=== PATIENT | female | born 1990 | race Caucasian/White ===

== ENCOUNTER 2024-04-01 05:03 | Observation (INO) | payer OTHER ==
[~2024-04-01] VITALS: Ht 157.5 cm; Wt 113.4 kg
[2024-04-01 05:35] LABS: BASOPHILS ABSOLUTE AUTO 0.03 K/mm3 (0.00-0.23); BASOPHILS PERCENT AUTO 0 % (0-2); EOSINOPHILS ABSOLUTE AUTO 0.04 K/mm3 (0.00-0.68); EOSINOPHILS PERCENT AUTO 0 % (0-6); Hematocrit 41.4 % (33.0-51.0); Hemoglobin 14.8 g/dL (11.5-16.0); IMMATURE GRAN ABSOLUTE AUTO 0.06 K/mm3 (0.00-0.10); IMMATURE GRAN PERCENT AUTO 0 % (0-1); LYMPHOCYTES ABSOLUTE AUTO 1.29 K/mm3 (0.84-5.20); LYMPHOCYTES PERCENT AUTO 8 % (21-46); MONOCYTES ABSOLUTE AUTO 0.63 K/mm3 (0.16-1.47); MONOCYTES PERCENT AUTO 4 % (4-13); Mean Corpuscular HGB 30.9 pg (26.0-34.0); Mean Corpuscular HGB Conc 35.7 g/dL (31.5-36.5); Mean Corpuscular Volume 86 fL (80-100); Mean Platelet Volume 9.6 fL (9.1-12.4); NEUTROPHILS ABSOLUTE AUTO 13.44 K/mm3 (1.96-9.15); NEUTROPHILS PERCENT AUTO 87 % (41-73); Platelet Count 426 K/mm3 (150-400); RDW Coefficient Variation 12.7 % (11.7-14.2); RDW Standard Deviation 39.8 fL (35.1-46.3); Red Blood Cell Count 4.79 M/mm3 (3.80-5.20); White Blood Cell Count 15.49 K/mm3 (4.00-11.30)
[2024-04-01 06:05] LABS: Ethanol (Alcohol), Blood, Med <3 mg/dL; Free Thyroxine 1.35 ng/dL (0.70-1.60); Salicylate <1.7 mg/dL (2.8-20.0)
[2024-04-01 06:14] LABS: Acetaminophen, Random <2.0 ug/mL (10.0-30.0); Alanine Aminotransfer (ALT/SGP 30 U/L (12-78); Albumin, Blood 3.9 g/dL (3.4-5.0); Albumin/Globulin Ratio 1.1 (0.8-1.8); Alk Phos 103 U/L (50-136); Anion Gap 12 mmol/L (3-11); Aspartate Aminotrans (AST/SGOT 15 U/L (12-37); Blood Urea Nitrogen 11 mg/dL (8-24); Bun/Creatinine Ratio 12.4 (12.0-20.0); CO2, Blood 17 mmol/L (21-32); Calcium, Blood 9.4 mg/dL (8.5-10.1); Chloride, Blood 118 mmol/L (98-108); Creatinine, Blood 0.89 mg/dL (0.40-1.00); Globulin, Blood 3.7 g/dL (2.2-4.0); Glomerular Filtration Rate 88 (60-); Glucose, Blood 112 mg/dL (70-99); Potassium, Blood 3.5 mmol/L (3.5-5.5); Sodium, Blood 143 mmol/L (136-145); Total Protein, Blood 7.6 g/dL (6.4-8.2)
[2024-04-01 14:40] LABS: U Amphetamine Screen Not Detected; U Barbituate Screen Not Detected; U Benzodiazapine Screen Not Detected; U Buprenorphine Screen Not Detected; U Cannabinoids Screen Not Detected; U Cocaine Screen Not Detected; U Methadone Screen Not Detected; U Methamphetamine Screen Not Detected; U Opiates Screen Not Detected; U Oxycodone Screen Not Detected; U Phencyclidine Screen Not Detected
[2024-04-02] MEDS ORDERED: DESV50 PO (02:21)
[2024-04-02] MEDS ORDERED: SPIR50 PO (02:23)
== END 2024-04-01 23:00 | disposition other institution (70) ==
LOC: ER 05:03 → EOR 05:04
PROVIDERS: ADMIT Emergency Medicine
DX: F32.A Depression, unspecified (principal); T43.212A Poisoning by selective serotonin and norepinephrine reuptake inhibitors, intentional self-harm, initial encounter
CPT/HCPCS: 80053; 80320; 81025; 84439; 84443; 85025; 93005; 93010; 99285-25; G0378; G0480

== ENCOUNTER 2024-04-01 12:26 | Inpatient (IN) | payer OTHER ==
[~2024-04-01] VITALS: Ht 157.5 cm; Wt 113.4 kg
[2024-04-02] MEDS ORDERED: DESV50 PO (02:21)
[2024-04-02] MEDS ORDERED: SPIR50 PO (02:23)
[2024-04-02] MEDS ORDERED: OLANZapine ODT 10 MG Tab MM PRN (05:05)
[2024-04-02] MEDS ORDERED: LORazepam 2 MG Tab PO PRN (05:05)
[2024-04-02] MEDS ORDERED: FLU VACC TS2024-25(6MOS UP)/PF 45 MCG/0.5 ML SYRINGE IM ONE (05:05)
--- NOTE | 2024-04-02 05:55 | NUR ---
Patient admitted to the unit at 2312 from [facility] accompanied by staff and security. They were A&O x4. They were cooperative with the admission process and assessment. They initially requested to complete AMA paperwork but at the end of the admission process they decided to wait and speak with the provider in the morning. They were provided a tour of the unit and shown to their room once the admission process was complete. They have a piercing on the side of each nostril that are permanent and unable to be removed without great difficulty. They appeared to be sleeping for 5 hours.
[2024-04-02] MEDS ORDERED: Spironolactone 50 MG Tab PO SCH (09:00)
[2024-04-02] MEDS ORDERED: FLUoxetine HCl 10 MG Cap PO SCH (11:00)
--- NOTE | 2024-04-02 16:48 | NUR ---
Pt Discharge Appointment Pt sees Dr. Fairchild and I have followed up with Transition of Care team to request to see if pt could have her apt in NOV moved up to be seen sooner. Will follow up tomorrow on appointment status.
--- NOTE | 2024-04-02 17:11 | NUR ---
SHIFT SUMMARY: PT ALERT AND ORIENTED. COMPLIANT WITH MEDICATIONS. PT DENIED SI, HI AND AVH. SPENT MOST OF THE DAY IN HER ROOM. WAS PRESENT DURING DINNER. PT SPOKE WITH UNIT DIRECTOR OF ENTERTAINMENT AND COMPLETED HER SAFETY PLAN. POSSIBLE PLAN FOR DROP HOLD AND DISCHARGE ON 04/03.
--- NOTE | 2024-04-03 04:57 | NUR ---
Patient was very pleasant and talkative and animated with this RN last night. with this RN last night. Spoke about her kids and how much she missed them. In addition, she used to be a caregiver and really loved the work, but stated she knew she would never be allowed to do that kind of work again. The patient has no SI, HI or AVH on assessment noted. Patient slept all night after receiving Ativan. Sleep time so far 7.5 hours. will continue close monitoring
[2024-04-03 08:31] VITALS: BP 120/90
[2024-04-03] MEDS ORDERED: FLUO10 PO (12:39)
--- NOTE | 2024-04-03 14:36 | NUR ---
DISCHARGE PT PROVIDED W/ DISCHARGE INSTRUCTIONS AND F/U INFORMATION W/ VERBAL UNDERSTANDING. PT EDUCATED ON NEW RX OF PROZAC AND IMPORTANCE OF NOT STOPPING WITHOUT PROVIDER INSTRUCTION. PT PROVIDED W/ PRINTED EDUCATION ON SI AND RESOURCE NUMBERS TO CALL. PT PERSONAL BELONGINGS RETURNED AND WALKED TO THE EXIT TO MEET SPOUSE AND DISCHARGE TO HOME.
== END 2024-04-03 14:31 | disposition home or self-care (01) | DRG 885 ==
LOC: BHU 12:26
PROVIDERS: ADMIT Psychiatry & Neurology Psychiatry
DX: F33.2 Major depressive disorder, recurrent severe without psychotic features (principal); F43.21 Adjustment disorder with depressed mood; Z28.21 Immunization not carried out because of patient refusal; Z91.51 Personal history of suicidal behavior
CPT/HCPCS: 90656; A9270